=== PATIENT | female | born 1965 | race Caucasian/White ===

== ENCOUNTER 2017-08-21 16:53 | Emergency (ER) | payer BC ==
[2017-08-21] MEDS ORDERED: Iopamidol 755 MG/ML 500 ML Multipack Bottle IVPUSH STA (18:03)
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
[2017-08-21] MEDS ORDERED: HYDROmorphone 1 MG/ML Syringe IV ONE (18:07)
[2017-08-21 23:05] VITALS: BP 114/64
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
== END 2017-08-21 19:50 ==
LOC: MW.ED 16:53
DX: S27.0XXA Traumatic pneumothorax, initial encounter (principal); S22.41XA Multiple fractures of ribs, right side, initial encounter for closed fracture; S42.002A Fracture of unspecified part of left clavicle, initial encounter for closed fracture; S22.20XA Unspecified fracture of sternum, initial encounter for closed fracture; Z79.82 Long term (current) use of aspirin; Z88.5 Allergy status to narcotic agent; Z91.040 Latex allergy status; V53.5XXA Driver of pick-up truck or van injured in collision with car, pick-up truck or van in traffic accident, initial encounter; Y92.410 Unspecified street and highway as the place of occurrence of the external cause; M79.641 Pain in right hand
CPT/HCPCS: 70450; 71010; 71260; 72125; 72128; 73130; 74177; 93005; 96374; 99285; G0390; J1170; Q9967